=== PATIENT | male | born 1940 | race American Indian/Alaskan Native ===

== ENCOUNTER 2017-08-20 07:07 | Emergency (ER) | payer OTHER ==
--- NOTE | 2017-08-20 08:05 | Emergency Department Report ---
HPI - General Chief Complaint: Abdominal Pain Time Seen by Provider: 08/20/17 07:55 - HPI HPI: Room 23 The patient is 77-year-old male presenting with a chief complaint of urinary retention. The patient states he's been unable to urinate since 22:00 last night. Patient admits to abdominal discomfort and urge to urinate. Patient states he's had this problem in the past related to his BPH. Location: Suprapubic Duration: Worsening since 20:00 Quality: Pressure Severity: Moderate Modifying factors: [see above] Context: [see above] Mode of transportation: Unknown ED Past Medical Hx - Past Medical History Hx HIV: Yes (viral load undetectable) Additional medical history: Benign prostatic hypertrophy - Surgical History Additional Surgical History: hernia repair, cervical disc repair - Social History Smoking Status: Former Smoker (none 10 years) Substance Use Type: Alcohol (occasional) ED Review of Systems ROS: Stated complaint: URINARY RETENTION Other details as noted in HPI Gastrointestinal: abdominal pain Genitourinary: other (urinary retention) Physical Exam - Physical Exam Vital Signs: Vital Signs 08/20/17 07:11 Temperature 97.7 F Pulse Rate 112 H Respiratory 18 Rate Blood Pressure 182/110 O2 Sat by Pulse 98 Oximetry Physical Exam: GENERAL: The patient is well-developed well-nourished male standing in the room appearing uncomfortable. [] HEENT: Normocephalic. Atraumatic. NECK: Trachea midline CHEST/LUNGS: There is no respiratory distress noted. HEART/CARDIOVASCULAR: Regular. There is tachycardia. ABDOMEN: Abdomen is soft with suprapubic fullness/discomfort to palpation. Patient has normal bowel sounds. NEURO: The patient is awake, alert, and oriented. The patient is cooperative. The patient has normal speech and gait. MUSCULOSKELETAL: There is no evidence of acute injury. ED Course Vital Signs 08/20/17 07:11 Temperature 97.7 F Pulse Rate 112 H Respiratory 18 Rate Blood Pressure 182/110 O2 Sat by Pulse 98 Oximetry ED Medical Decision Making - Lab Data Laboratory Tests 08/20/17 08:10 Urine Color Yellow Urine Turbidity Clear Urine pH 5.0 Ur Specific [place] 1.005 Urine Protein <15 mg/dl Urine Glucose (UA) Neg Urine Ketones Neg Urine Blood Mod Urine Nitrite Neg Urine Bilirubin Neg Urine Urobilinogen < 2.0 Ur Leukocyte Esterase Neg Urine WBC (Auto) < 1.0 Urine RBC (Auto) 3.0 - Differential Diagnosis urinary retention, UTI Critical care attestation.: If time is entered above; I have spent that time in minutes in the direct care of this critically ill patient, excluding procedure time. ED Disposition Clinical Impression: Urinary retention Disposition: DC-01 TO HOME OR SELFCARE Is pt being admited?: No Does the pt Need Aspirin: No Condition: Stable Instructions: Urinary Retention in Men (ED), Fitzpatrick Catheter Placement and Care (ED), Urinary Leg Bag (GEN) Additional Instructions: Return to the emergency department immediately should you develop worsening symptoms, fever, inability to tolerate food or liquid or any other concerns. Referrals: [facility] [Outside] - 2-3 Days PRIMARY CARE,MD [Primary Care Provider] - 2-3 Days (It is important that you follow-up with your urologist for further evaluation) Time of Disposition: 09:20
[2017-08-20 08:55] LABS: Bilirubin,Urine NEG (Negative); Blood,Urine MOD (Negative); Color,Urine Yellow (Yellow); Protein,Urine <15 mg/dL mg/dL (Negative); Urobilinogen,Urine < 2.0 mg/dL (<2.0)
[2017-08-20 09:01] LABS: WBC,Urine < 1.0 /HPF (0.0-6.0)
[2017-08-20 15:18] VITALS: BP 166/99
--- NOTE | 2017-08-22 11:30 | XRay Report ---
ROUTINE CHEST, TWO VIEWS: HISTORY: Cough. The trachea, heart, mediastinal contour, lung vázquez and bony thorax are unremarkable. Few scattered calcified granulomas in the right upper lobe are noted. IMPRESSION: Unremarkable chest x-ray.
== END 2017-08-20 19:05 | disposition home or self-care (01) ==
LOC: ED 07:07
DX: R33.9 Retention of urine, unspecified (principal); Z87.891 Personal history of nicotine dependence
CPT/HCPCS: 51702; 71046; 81001

== ENCOUNTER 2017-09-04 02:44 | Emergency (ER) | payer MEDICARE ==
[2017-09-04] MEDS ORDERED: NACL 0.9% 500 ML IR ONE (03:32)
[2017-09-04] MEDS ORDERED: NACL 0.9% IR ONE (03:53)
[2017-09-04 04:02] LABS: Bilirubin,Urine NEG (Negative); Blood,Urine LG (Negative); Color,Urine Yellow (Yellow); Mucus,Urine FEW /HPF; Urobilinogen,Urine < 2.0 mg/dL (<2.0)
--- NOTE | 2017-09-04 09:58 | Emergency Department Report ---
ED Male HPI - General Chief complaint: Urogenital-Male Stated complaint: ABD PAIN Time Seen by Provider: 09/04/17 07:11 Source: patient, RN notes reviewed, old records reviewed Mode of arrival: Ambulatory Limitations: No Limitations - History of Present Illness Initial comments: This is a 77-year-old female. The patient is unknown to this provider previously past medical history includes benign prostatic hypertrophy, HIV, emphysema Patient recently discharged from the hospital after complicated course. Please see his discharge summary for the full details of his recent hospitalization. He presented to the ER today with a complaint of obstructed Fitzpatrick catheter and inability to urinate and suprapubic fullness. This was relieved with placement of a Fitzpatrick catheter. Denies all symptoms at this time. He specifically denies headache, neck pain, chest pain, abdominal pain, shortness of breath and testicular pain. He is not currently sexually active. MD Complaint: other -: Gradual Location: abdomen (suprapubic region) Radiation: none Severity: severe Quality: aching Consistency: now resolved Improves with: other (as per history of present illness) Worsens with: none indwelling catheter urinary retention. denies: discharge, swelling, mass, rash, blood in urine, dysuria, fever, nausea/vomiting, incontinence - Related Data Sexually active: No Previous Rx's Medication Instructions Recorded Last Taken Type ALBUTEROL NEB's [Proventil 0.083% 2.5 mg IH Q4HRT PRN 31 Days #30 09/01/17 Unknown Rx NEBS] nebu Abacavir/Dolutegravir/Lamivudi 1 each PO QDAY #30 09/01/17 08/26/17 Rx [Triumeq (Nf)] Acetaminophen [Acetaminophen TAB] 325 mg PO Q4H PRN #30 tablet 09/01/17 Unknown Rx Ipratropium/Albuterol Sulfate 1 ampul IH BIDRT #30 ampul.neb 09/01/17 Unknown Rx [DUONEB *Not for PRN Use*] Levofloxacin [Levaquin TAB] 750 mg PO Q24HR #2 tablet 09/01/17 Unknown Rx Tamsulosin [Flomax] 0.4 mg PO QDAY #30 capsule 09/01/17 Unknown Rx amLODIPine [Norvasc] 5 mg PO DAILY #30 tab 09/01/17 Unknown Rx predniSONE [Deltasone] 1 dose PO QDAY #52 tab 09/01/17 Unknown Rx Allergies Allergy/AdvReac Type Severity Reaction Status Date / Time No Known Allergies Allergy Verified 08/27/17 08:06 ED Review of Systems ROS: Stated complaint: ABD PAIN Other details as noted in HPI Comment: All other systems reviewed and negative ED Past Medical Hx - Past Medical History Previous Medical History?: Yes Hx Hypertension: No Hx CVA: No Hx Congestive Heart Failure: No Hx Diabetes: No Hx Deep Vein Thrombosis: No Hx Pulmonary Embolism: No Hx GERD: No Hx Liver Disease: No Hx Renal Disease: No Hx Sickle Cell Disease: No Hx Arthritis: No Hx Headaches / Migraines: No Hx Seizures: No Hx Kidney Stones: No Hx Psychiatric Treatment: No Hx Asthma: No Hx COPD: No Hx Tuberculosis: No Hx Dementia: No Hx HIV: Yes (viral load undetectable) Additional medical history: Benign prostatic hypertrophy, pneumonia recently d/c 'd with catheter leg bag - Surgical History Additional Surgical History: hernia repair, cervical disc repair - Social History Smoking Status: Never Smoker - Medications Home Medications: Home Medications Medication Instructions Recorded Confirmed Last Taken Type ALBUTEROL NEB's [Proventil 0.083% 2.5 mg IH Q4HRT PRN 31 Days #30 09/01/17 Unknown Rx NEBS] nebu Abacavir/Dolutegravir/Lamivudi 1 each PO QDAY #30 09/01/17 08/27/17 08/26/17 Rx [Triumeq (Nf)] Acetaminophen [Acetaminophen TAB] 325 mg PO Q4H PRN #30 tablet 09/01/17 Unknown Rx Ipratropium/Albuterol Sulfate 1 ampul IH BIDRT #30 ampul.neb 09/01/17 Unknown Rx [DUONEB *Not for PRN Use*] Levofloxacin [Levaquin TAB] 750 mg PO Q24HR #2 tablet 09/01/17 Unknown Rx Tamsulosin [Flomax] 0.4 mg PO QDAY #30 capsule 09/01/17 Unknown Rx amLODIPine [Norvasc] 5 mg PO DAILY #30 tab 09/01/17 Unknown Rx predniSONE [Deltasone] 1 dose PO QDAY #52 tab 09/01/17 Unknown Rx ED Physical Exam - General Limitations: No Limitations General appearance: alert, in no apparent distress - Head Head exam: Present: atraumatic, normocephalic - Eye Eye exam: Present: normal appearance, EOMI. Absent: nystagmus - ENT ENT exam: Present: normal exam, normal orophraynx, mucous membranes moist, normal external ear exam - Neck Neck exam: Present: normal inspection, full ROM - Respiratory Respiratory exam: Present: normal lung sounds bilaterally. Absent: respiratory distress - Cardiovascular Cardiovascular Exam: Present: regular rate, normal rhythm, normal heart sounds. Absent: bradycardia, tachycardia, irregular rhythm, systolic murmur, diastolic murmur, rubs, gallop - GI/Abdominal GI/Abdominal exam: Present: soft, normal bowel sounds. Absent: distended, tenderness, guarding, rebound, rigid, pulsatile mass - Rectal Rectal exam: Present: deferred - exam: Present: normal inspection, other (Fitzpatrick catheter in place draining clear yellow urine). Absent: testicular tenderness External exam: Present: normal external exam, other (there is no testicular tenderness. There is normal testicular lie bilaterally. There is normal cremasteric reflex bilaterally.). Absent: erythema, swelling, lesions, lacerations, ecchymosis - Extremities Exam Extremities exam: Present: normal inspection, full ROM, normal capillary refill. Absent: tenderness, pedal edema, joint swelling, calf tenderness - Back Exam Back exam: Present: normal inspection, full ROM. Absent: tenderness, CVA tenderness (R), paraspinal tenderness, vertebral tenderness - Neurological Exam Neurological exam: Present: alert, oriented X3, CN II-XII intact, normal gait, other (Extraocular movements intact. Tongue midline. No facial droop. Facial sensation intact to light touch in the V1, V2, V3 distribution bilaterally. 5 and 5 strength in 4 extremities.. Sensation is intact to light touch in 4 extremities.). Absent: motor sensory deficit - Psychiatric Psychiatric exam: Present: normal affect, normal mood - Skin Skin exam: Present: warm, dry, intact, normal color. Absent: rash ED Course Vital Signs 09/04/17 09/04/17 09/04/17 02:44 03:13 04:40 Temperature 97.6 F 97.6 F Pulse Rate 123 H 124 H 94 H Respiratory 22 22 16 Rate Blood Pressure 105/70 105/70 Blood Pressure 118/80 [Right] O2 Sat by Pulse 97 98 96 Oximetry 09/04/17 07:04 Temperature 97.9 F Pulse Rate 72 Respiratory 18 Rate Blood Pressure Blood Pressure 133/83 [Right] O2 Sat by Pulse 96 Oximetry ED Medical Decision Making - Lab Data Vital Signs 09/04/17 09/04/17 09/04/17 02:44 03:13 04:40 Temperature 97.6 F 97.6 F Pulse Rate 123 H 124 H 94 H Respiratory 22 22 16 Rate Blood Pressure 105/70 105/70 Blood Pressure 118/80 [Right] O2 Sat by Pulse 97 98 96 Oximetry 09/04/17 07:04 Temperature 97.9 F Pulse Rate 72 Respiratory 18 Rate Blood Pressure Blood Pressure 133/83 [Right] O2 Sat by Pulse 96 Oximetry Lab Results 09/04/17 Range/Units 03:41 Urine Color Yellow (Yellow) Urine Turbidity Clear (Clear) Urine pH 5.0 (5.0-7.0) Ur Specific [place] 1.018 (1.003-1.030) Urine Protein 30 mg/dl (Negative) mg/dL Urine Glucose (UA) Neg (Negative) mg/dL Urine Ketones Neg (Negative) mg/dL Urine Blood Lg (Negative) Urine Nitrite Neg (Negative) Urine Bilirubin Neg (Negative) Urine Urobilinogen < 2.0 (<2.0) mg/dL Ur Leukocyte Esterase Sm (Negative) Urine WBC (Auto) 21.0 H (0.0-6.0) /HPF Urine RBC (Auto) 76.0 (0.0-6.0) /HPF Urine Mucus Few /HPF - Medical Decision Making Differential diagnosis, including not limited to: Urinary tract infection, Fitzpatrick catheter malfunction, obstructive uropathy, malignancy Assessment and plan: 77-year-old male with resolved urinary retention. He is afebrile with reassuring vital signstachycardia has resolved. A recent urine culture was negative, and his urinalysis is reviewed and appreciated, not supportive of diagnosis of urinary tract infection. He is taking Flomax, and he is counseled to follow up with outpatient urology. In addition, I reviewed the patient's recent CT scan results with him, and carefully advised him to follow up with outpatient urology or primary care for further evaluation to exclude cancer, tumor, malignancy. Critical care attestation.: If time is entered above; I have spent that time in minutes in the direct care of this critically ill patient, excluding procedure time. ED Disposition Clinical Impression: Urinary retention Disposition: DC-01 TO HOME OR SELFCARE Is pt being admited?: No Does the pt Need Aspirin: No Condition: Good Instructions: Urinary Retention in Men (ED) Additional Instructions: Please continue current outpatient medications. Keep the Fitzpatrick catheter in place. Follow up with a urology specialist for trial of void within the next 7- 10 days. Return to the ER right away with new pain, worsened pain, migration of pain, fevers, chills, lethargy, irritability, projectile vomiting, change in mental status, confusion, inability to urinate, inability to defecate. Please note that a recent CT scan of abdomen and pelvis here demonstrated multiple incidental findings which need to be followed up by either primary care or urology. It is recommended that the patient follows up within the next month for these incidental findings to exclude cancer, tumor, malignancy Referrals: ANIVAL DEL ANGEL MD [Primary Care Provider] - 3-5 Days MARII RAMIREZ MD [Staff Physician] - 3-5 Days
[2017-09-04 10:33] VITALS: BP 124/80
== END 2017-09-04 10:32 | disposition home or self-care (01) ==
LOC: ED 02:44
DX: T83.091A Other mechanical complication of indwelling urethral catheter, initial encounter (principal); N40.1 Benign prostatic hyperplasia with lower urinary tract symptoms; R33.8 Other retention of urine; Y84.6 Urinary catheterization as the cause of abnormal reaction of the patient, or of later complication, without mention of misadventure at the time of the procedure; Y92.89 Other specified places as the place of occurrence of the external cause
CPT/HCPCS: 81001